=== PATIENT | female | born 1985 | race Hispanic/Latino ===

== ENCOUNTER 2017-04-11 03:32 | Observation (INO) | payer SELFPAY ==
[2017-04-11 03:58] VITALS: O2SAT 97
[2017-04-11] MEDS ORDERED: Sodium Chloride 0.9% 1,000 ML IV STA (04:02)
[2017-04-11 04:57] LABS: BASO % 0.2 % (0.0-2.0); EOS # 0.2 K/uL (0.0-0.7); EOS % 3.4 % (0.0-4.0); HEMATOCRIT 30.7 % (34.0-47.0); LYMPH # 1.5 K/uL (1.0-4.3); LYMPH % 22.2 % (20.0-40.0); MEAN CELL VOLUME 82.2 fl (81.0-99.0); MEAN CORPUSCULAR HEMOGLOBIN 26.7 pg (27.0-31.0); MEAN CORPUSCULAR HGB CONC 32.4 g/dL (33.0-37.0); MEAN PLATELET VOLUME 9.4 fl (7.2-11.7); MONO # 0.6 K/uL (0.0-0.8); MONO % 8.9 % (0.0-10.0); NEUT # 4.4 K/uL (1.8-7.0); NEUT % 65.3 % (50.0-75.0); NRBC % 0.1 % (0.0-0.0); RED CELL DISTRIBUTION WIDTH 16.4 % (11.5-14.5); WHITE BLOOD COUNT 6.8 K/uL (4.8-10.8)
[2017-04-11 04:58] LABS: URINE BILIRUBIN NEGATIVE (NEGATIVE); URINE BLOOD NEGATIVE (NEGATIVE); URINE COLOR STRAW (YELLOW); URINE GLUCOSE (UA) NEG (Normal); URINE KETONE NEGATIVE (NEGATIVE); URINE LEUKOCYTE ESTERASE NEG Leu/uL (Negative); URINE PROTEIN NEGATIVE (NEGATIVE); URINE UROBILINOGEN 0.2-1.0 mg/dL (0.2-1.0); WBC URINE < 1 /hpf (0-5)
--- NOTE | 2017-04-11 04:59 | ED PDOC ---
HPI: Abdomen Time Seen by Provider: 04/11/17 03:52 Chief Complaint (Nursing): Abdominal Pain Chief Complaint (Provider): abdominal pain, vomiting History Per: Patient History/Exam Limitations: no limitations Onset/Duration Of Symptoms: Days (1) Current Symptoms Are (Timing): Still Present Location Of Pain/Discomfort: Epigastric Quality Of Discomfort: Cramping Associated Symptoms: Nausea, Vomiting, Diarrhea Exacerbating Factors: Food Alleviating Factors: None Last Bowel Movement: Today Additional Complaint(s): 31yo biologic male currently undergoing gender reassignment on hormonal therapy presents c/o upper abdominal pain, nausea and blood tinged vomitus. Denies black or tarry stools, denies weakness, syncope or fever. Denies any prior history of such or being hospitalized for such in past. Denies history of EGD or workup for abdominal pain. Pt reports using motrin and OTC GI medications without much relief. On chart review available, patient has been admitted and worked up by GI at [facility]. Also additional MR#s with same last name, same birthday and same clinical history of gender reassignment #[id number], #[id number] demonstrate prior visits for similar. Past Medical History Reviewed: Historical Data, Nursing Documentation, Vital Signs Vital Signs: Last Vital Signs Temp 98.4 F 04/11/17 03:53 Pulse 88 04/11/17 03:53 Resp 18 04/11/17 03:53 BP 103/58 L 04/11/17 03:53 Pulse Ox 97 04/11/17 05:29 - Medical History PMH: No Chronic Diseases Other PMH: gender reassignment on hormonal therapy - Surgical History Surgical History: Appendectomy Other surgeries: breast augmentation - Family History Family History: States: Unknown Family Hx - Social History Current smoker - smoking cessation education provided: No Drugs: Cannabis - Immunization History Hx Tetanus Toxoid Vaccination: No Hx Influenza Vaccination: Yes Hx Pneumococcal Vaccination: Yes - Home Medications Home Medications: Ambulatory Orders Medication Instructions Recorded Estrogens,Esterified [Menest] 20 mg IM Q2W 02/12/17 Spironolactone [Aldactone] 100 mg PO BID 02/12/17 - Allergies Allergies/Adverse Reactions: Allergies Allergy/AdvReac Type Severity Reaction Status Date / Time acetaminophen [From Tylenol] Allergy Verified 02/12/17 01:30 aspirin Allergy Verified 02/12/17 01:30 Penicillins AdvReac Verified 02/12/17 01:30 Review of Systems ROS Statement: Except As Marked, All Systems Reviewed And Found Negative Constitutional: Negative for: Fever, Chills ENT: Negative for: Nose Pain, Nose Discharge Cardiovascular: Negative for: Chest Pain, Palpitations Respiratory: Negative for: Cough, Shortness of Breath Gastrointestinal: Positive for: Nausea, Vomiting, Abdominal Pain, Hematemesis. Negative for: Diarrhea, Constipation, Hematochezia, Rectal Pain Genitourinary Female: Negative for: Dysuria, Frequency, Incontinence Musculoskeletal: Negative for: Neck Pain, Shoulder Pain Physical Exam - Reviewed Nursing Documentation Reviewed: Yes Vital Signs Reviewed: Yes - Physical Exam Appears: Positive for: Well, Non-toxic, No Acute Distress Head Exam: Positive for: ATRAUMATIC, NORMAL INSPECTION, NORMOCEPHALIC Skin: Positive for: Normal Color, Warm, DRY Eye Exam: Positive for: EOMI, PERRL. Negative for: Periorbital swelling, Scleral icterus ENT: Positive for: Normal ENT Inspection. Negative for: Pharyngeal Erythema Neck: Positive for: Normal, Painless ROM Cardiovascular/Chest: Positive for: Regular Rate, Rhythm Respiratory: Positive for: CNT, Normal Breath Sounds Gastrointestinal/Abdominal: Positive for: Soft. Negative for: Tenderness, Guarding, Asicites Extremity: Negative for: Pedal Edema, Deformity Neurologic/Psych: Positive for: Alert, Oriented, Gait (observed normal). Negative for: Motor/Sensory Deficits - Laboratory Results Result Diagrams: 04/11/17 04:47 04/11/17 04:47 - ECG O2 Sat by Pulse Oximetry: 97 Medical Decision Making Medical Decision Making: workup initiated for recurrent upper abd pain. Prior chart reviewed including CT abd pelvis <2months ago, no acute findings. GI consult from late January 2017 reviewed. ED OBSERVATION Date of observation admission: 04/11/17 Time of observation admission: 05:28 - Observation admission statement Patient is being placed in observation because:: ongoing abdominal pain not responsive to conservative treatment - Goals of Observation Goals of observation are:: improved symptoms, obtain CT abd pelv and serial abd exams r/o acute abdomen Disposition - Clinical Impression Clinical Impression: Abdominal pain - Patient ED Disposition Is Patient to be Admitted: Transfer of Care - Disposition Disposition: Transfer of Care Disposition Time: 05:28 Condition: STABLE Patient Signed Over To: Juan F Walter Handoff Comments: pending CT result and dispo
[2017-04-11 05:12] LABS: ALB/GLOB RATIO 1.6 (1.0-2.1); ALKALINE PHOSPHATASE 45 U/L (38-126); ALT/SGPT 32 U/L (9-52); AST/SGOT 23 U/L (14-36); BILIRUBIN,TOTAL 0.2 mg/dl (0.2-1.3); BLOOD UREA NITROGEN 11 mg/dl (7-17); CALCIUM 9.5 mg/dL (8.4-10.2); CARBON DIOXIDE 24 mmol/L (22-30); CHLORIDE 103 mmol/L (98-107); GFR AFRICAN-AMERICAN > 60; GLUCOSE,RANDOM 118 mg/dL (65-105); LIPASE 65 U/L (23-300); POTASSIUM 3.8 MMOL/L (3.6-5.0); SODIUM 139 mmol/l (132-148); TOTAL PROTEIN 7.1 G/DL (6.3-8.2)
[2017-04-11] MEDS ORDERED: Iohexol 240 (50 ml) PO ONE (05:27)
--- NOTE | 2017-04-11 08:06 | ED PDOC ---
- Laboratory Results Result Diagrams: 04/11/17 04:47 04/11/17 04:47 Interpretation Of Abn Labs: no acute - ECG O2 Sat by Pulse Oximetry: 97 (RA) Pulse Ox Interpretation: Normal - CT Scan/US ct Other Rad Studies (CT/US): Read By Radiologist Other Rad Interpretation: no acute - Progress ED Course And Treament: 1010: Spoke with Dr. Hodges. No acute findings on CT. Pt. tolerated po. AAOx3. Pain free. Fu with pcp. Medical Decision Making Medical Decision Making: Patient signed out to provider at [address] pending CT. Scribe Attestation Documented by Thais Flannery acting as a scribe for Juan F Walter MD. Provider Attestation: All medical record entries made by the Scribe were at my direction and personally dictated by me. I have reviewed the chart and agree that the record accurately reflects my personal performance of the history, physical exam, medical decision making, and the department course for this patient. I have also personally directed, reviewed, and agree with the discharge instructions and disposition. Disposition - Clinical Impression Clinical Impression: Abdominal pain - POA Present On Arrival: None - Disposition Disposition: Routine/Home Disposition Time: 10:10 Condition: STABLE
[2017-04-11 10:19] VITALS: BP 110/60; PULSE 65; RESP 17; TEMP 97.9
--- NOTE | 2017-04-11 10:47 | CT ---
PROCEDURE: CT abdomen pelvis dated 04/11/2017. HISTORY: Upper abdominal pain COMPARISON: None. TECHNIQUE: Contiguous axial images of the abdomen and pelvis performed following oral and intravenous injection of approximately 95 cc Omnipaque 300 contrast material. . Coronal and Sagittal reformats generated. Radiation dose: Total exam DLP = 1123.49 mGy-cm. This CT exam was performed using one or more of the following dose reduction techniques: Automated exposure control, adjustment of the mA and/or kV according to patient size, and/or use of iterative reconstruction technique. FINDINGS: LOWER THORAX: Unremarkable. LIVER: Liver is upper limits of normal in size measuring nearly 18 cm. Normal in size. GALLBLADDER AND BILE DUCTS: What is felt to represent the gallbladder is apparently collapsed likely due to nonfasting state and cannot be adequately evaluated. Gallbladder wall is somewhat thickened likely due to collapse. No definitive intraluminal gallbladder calculi. Consider gallbladder ultrasound followup PANCREAS: Visualized portions of the pancreas appear grossly unremarkable. SPLEEN: Spleen exhibits normal size. Tiny calcification anterior inferior splenic parenchyma consistent with prior exposure to granulomatous disease process. ADRENALS: There are no adrenal gland lesions KIDNEYS AND URETERS: The there is opacification of the renal collecting systems due to delayed scanning following injection. Rounded hyperdense focus upper pole left kidney measuring 11.5 mm could represent a hyperdense or hemorrhagic cyst Followup ultrasound recommended to confirm and exclude solid mass. BLADDER: Grossly unremarkable. Appendix Apparent appendectomy with what appears represent suture along the posterior inferior margin of the cecal wall. BOWEL: Evaluation of the bowel is somewhat limited due to incomplete opacification. Stomach is incompletely distended which presumably accounts for thick-walled appearance. Possibility of gastritis not excluded. Visualized loops of small bowel exhibit relatively normal contour and caliber. No evidence of acute mechanical small bowel obstruction with oral contrast material extending to the colon to the level of the rectum. No definitive mural wall thickening. . What appears represent some suture material along the cecum likely due to prior appendectomy however clinical correlation with surgical history. PERITONEUM: Unremarkable. No fluid collection. No free air. LYMPH NODES: Unremarkable. No enlarged lymph nodes. VASCULATURE: Unremarkable. No aortic aneurysm. BONES: No fracture or destructive lesion. OTHER FINDINGS: None. IMPRESSION: Apparent up status post appendectomy. Gallbladder is incompletely visualized contracted due to of presume nonfasting state and therefore cannot be adequately evaluated. No definitive intraluminal calculi. . Consider followup gallbladder ultrasound. Probable small hyperdense or hemorrhagic cyst upper pole kidney left kidney. Recommend follow-up ultrasound to confirm and exclude solid mass. Borderline hepatomegaly. Tiny splenic calcification consistent with prior exposure to granulomatous disease process.
== END 2017-04-11 10:28 | disposition home or self-care (01) ==
LOC: H.ER 03:32 → H.EROBSV 05:28
PROVIDERS: ADMIT Emergency Medicine; ATTEND Emergency Medicine
DX: R10.13 Epigastric pain (principal); R11.2 Nausea with vomiting, unspecified; Z88.6 Allergy status to analgesic agent; Z88.0 Allergy status to penicillin

== ENCOUNTER 2017-05-02 01:04 | Emergency (ER) | payer SELFPAY ==
[2017-05-02 01:21] VITALS: BP 119/71; PULSE 79; RESP 18; TEMP 98.9; O2SAT 99
[2017-05-02] MEDS ORDERED: Sodium Chloride 0.9% 1,000 ML IV STA (01:50)
--- NOTE | 2017-05-02 01:54 | ED PDOC ---
HPI:Nausea, Vomiting, Diarrhea Time Seen by Provider: 05/02/17 01:14 Chief Complaint (Nursing): Abdominal Pain Chief Complaint (Provider): vomiting, diarrhea, abdominal pain History Per: Patient History/Exam Limitations: no limitations Onset/Duration Of Symptoms: Days (4) Current Symptoms Are (Timing): Still Present Associated Symptoms: Nausea, Vomiting, Diarrhea Additional History Per: Patient Additional Complaint(s): 31 y/o biologic male currently undergoing gender reassignment on hormonal therapy presents with abdominal pain with vomiting and diarrhea x 4 days. Patient states yesterday she began to notice bright red blood in the diarrhea. Denies fever, chest pain, shortness of breath, palpitations, sick contacts. Patient states she just came from [place] 1 week ago. Past Medical History Reviewed: Historical Data, Nursing Documentation, Vital Signs Vital Signs: Last Vital Signs Temp 98.9 F 05/02/17 01:19 Pulse 79 05/02/17 01:19 Resp 18 05/02/17 01:19 BP 119/71 05/02/17 01:19 Pulse Ox 99 05/02/17 01:19 - Medical History PMH: No Chronic Diseases - Surgical History Surgical History: Appendectomy - Family History Family History: States: Unknown Family Hx - Immunization History Hx Tetanus Toxoid Vaccination: No Hx Influenza Vaccination: Yes Hx Pneumococcal Vaccination: Yes - Home Medications Home Medications: Ambulatory Orders Medication Instructions Recorded Estrogens,Esterified [Menest] 20 mg IM Q2W 02/12/17 Spironolactone [Aldactone] 100 mg PO BID 02/12/17 Famotidine [Pepcid] 20 mg PO DAILY PRN #6 tab 04/11/17 Dicyclomine [Bentyl] 20 mg PO TID PRN #10 tab 05/02/17 Esomeprazole Magnesium [Nexium] 20 mg PO DAILY #10 capsule. 05/02/17 Ondansetron ODT [Zofran ODT] 4 mg PO Q8 PRN #10 odt 05/02/17 - Allergies Allergies/Adverse Reactions: Allergies Allergy/AdvReac Type Severity Reaction Status Date / Time acetaminophen [From Tylenol] Allergy Verified 02/12/17 01:30 aspirin Allergy Verified 02/12/17 01:30 Penicillins AdvReac Verified 02/12/17 01:30 Review of Systems ROS Statement: Except As Marked, All Systems Reviewed And Found Negative Gastrointestinal: Positive for: Nausea, Vomiting, Abdominal Pain, Diarrhea Physical Exam - Reviewed Nursing Documentation Reviewed: Yes Vital Signs Reviewed: Yes - Physical Exam Appears: Positive for: Well, Non-toxic, No Acute Distress Head Exam: Positive for: ATRAUMATIC, NORMAL INSPECTION, NORMOCEPHALIC Skin: Positive for: Normal Color Eye Exam: Positive for: Normal appearance ENT: Positive for: Normal ENT Inspection Cardiovascular/Chest: Positive for: Regular Rate, Rhythm Respiratory: Positive for: Normal Breath Sounds Gastrointestinal/Abdominal: Positive for: Bowel Sounds, Soft, Tenderness (LUQ) Rectal: Positive for: Hemorrhoids (external, nonthrombosed, nontender), Other ( exam chaperoned by Debbie Prince Rn) Extremity: Positive for: Normal ROM Neurologic/Psych: Positive for: Alert, Oriented - Laboratory Results Result Diagrams: 05/02/17 02:04 05/02/17 02:04 - ECG O2 Sat by Pulse Oximetry: 99 - Progress ED Course And Treament: labs, urine, IV fluids, IV zofran, IV pepcid, PO bentyl Chart reviewed, patient with multiple visits for same (has different MR numbers with different names) Last CT 04/11/17 showed no acute/concerning findings. On re-eval, patient sleeping; no distress. 3:00 Patient educated on findings, discharged with rx Zofran, Nexium, Bentyl. Advised fluids, bland diet, follow up GI. Return to ED for worsening/concerning symptoms. Disposition - Clinical Impression Clinical Impression: Gastroenteritis - Patient ED Disposition Is Patient to be Admitted: No Counseled Patient/Family Regarding: Studies Performed, Diagnosis, Need For Followup, Rx Given - Disposition Referrals: Segundo Hwang MD, PhD [Staff Provider] - Disposition: Routine/Home Disposition Time: 03:01 Condition: IMPROVED Prescriptions: Dicyclomine [Bentyl] 20 mg PO TID PRN #10 tab PRN Reason: Pain, Mild (1-3) Esomeprazole Magnesium [Nexium] 20 mg PO DAILY #10 capsule. Ondansetron ODT [Zofran ODT] 4 mg PO Q8 PRN #10 odt PRN Reason: Nausea/Vomiting Instructions: Gastroenteritis (ED), Rectal Bleeding (ED)
[2017-05-02 02:10] LABS: BASO # 0.1 K/uL (0.0-0.2); EOS # 0.1 K/uL (0.0-0.7); EOS % 2.6 % (0.0-4.0); HEMOGLOBIN 9.5 g/dL (12.0-16.0); LYMPH # 1.3 K/uL (1.0-4.3); LYMPH % 23.1 % (20.0-40.0); MEAN CELL VOLUME 80.8 fl (81.0-99.0); MEAN CORPUSCULAR HEMOGLOBIN 26.4 pg (27.0-31.0); MEAN CORPUSCULAR HGB CONC 32.7 g/dL (33.0-37.0); MONO # 0.7 K/uL (0.0-0.8); MONO % 12.2 % (0.0-10.0); NEUT # 3.5 K/uL (1.8-7.0); NEUT % 61.1 % (50.0-75.0); RBC 3.59 Mil/uL (3.80-5.20); WHITE BLOOD COUNT 5.7 K/uL (4.8-10.8)
[2017-05-02 02:20] LABS: ALB/GLOB RATIO 1.5 (1.0-2.1); ALBUMIN 4.2 g/dL (3.5-5.0); ALT/SGPT 25 U/L (9-52); AST/SGOT 22 U/L (14-36); BLOOD UREA NITROGEN 14 mg/dl (7-17); CALCIUM 9.4 mg/dL (8.4-10.2); GFR AFRICAN-AMERICAN > 60; GFR NON-AFRICAN AMERICAN > 60; LIPASE 48 U/L (23-300)
== END 2017-05-02 03:16 | disposition home or self-care (01) ==
LOC: H.ER 01:04
DX: K52.9 Noninfective gastroenteritis and colitis, unspecified (principal); Z88.0 Allergy status to penicillin
CPT/HCPCS: 80053; 83690; 85025; 96361; 96374; 96375; 99283; G0328; J2405; J7040

== ENCOUNTER 2017-05-19 01:50 | Inpatient (IN) | payer SELFPAY ==
--- NOTE | 2017-05-19 02:53 | ED PDOC ---
HPI: Psych/Substance Abuse Time Seen by Provider: 05/19/17 01:54 Chief Complaint (Nursing): Psychiatric Evaluation Chief Complaint (Provider): Psychiatric evaluation History Per: Patient History/Exam Limitations: no limitations Onset/Duration Of Symptoms: Days (x3 days) Additional Complaint(s): Silvia Grossman is a 31 year old female well known to the ED who presents here today for depression and suicidal thoughts for the past 3 days as a result of the of her grandmother. Denies any plans to kill herself, usage of drugs, or alcohol. PMD: None Past Medical History Reviewed: Historical Data, Nursing Documentation, Vital Signs Vital Signs: Last Vital Signs Temp 99.0 F 05/19/17 02:05 Pulse 91 H 05/19/17 02:05 Resp 18 05/19/17 02:05 BP 104/64 05/19/17 02:05 Pulse Ox 100 05/19/17 02:05 - Medical History PMH: No Chronic Diseases - Surgical History Surgical History: Appendectomy - Family History Family History: States: Unknown Family Hx - Social History Alcohol: None Drugs: Denies - Immunization History Hx Tetanus Toxoid Vaccination: No Hx Influenza Vaccination: Yes Hx Pneumococcal Vaccination: Yes - Home Medications Home Medications: Ambulatory Orders Medication Instructions Recorded Estrogens,Esterified [Menest] 20 mg IM Q2W 02/12/17 Spironolactone [Aldactone] 100 mg PO BID 02/12/17 Famotidine [Pepcid] 20 mg PO DAILY PRN #6 tab 04/11/17 Dicyclomine [Bentyl] 20 mg PO TID PRN #10 tab 05/02/17 Esomeprazole Magnesium [Nexium] 20 mg PO DAILY #10 maye. 05/02/17 Ondansetron ODT [Zofran ODT] 4 mg PO Q8 PRN #10 odt 05/02/17 - Allergies Allergies/Adverse Reactions: Allergies Allergy/AdvReac Type Severity Reaction Status Date / Time acetaminophen [From Tylenol] Allergy RASH Verified 05/19/17 02:05 aspirin Allergy RASH Verified 05/19/17 02:05 Penicillins AdvReac SWELLING Verified 05/19/17 02:05 Review of Systems ROS Statement: Except As Marked, All Systems Reviewed And Found Negative Psych: Positive for: Depression, Suicidal ideation. Negative for: Other (No Homicidal ideation) Physical Exam - Reviewed Nursing Documentation Reviewed: Yes Vital Signs Reviewed: Yes - Physical Exam Appears: Positive for: Well, Non-toxic, No Acute Distress Head Exam: Positive for: ATRAUMATIC, NORMAL INSPECTION, NORMOCEPHALIC Skin: Positive for: Normal Color Eye Exam: Positive for: Normal appearance, EOMI, PERRL ENT: Positive for: Normal ENT Inspection Neck: Positive for: Normal, Painless ROM, Supple Cardiovascular/Chest: Positive for: Regular Rate, Rhythm. Negative for: Murmur , Tachycardia Respiratory: Positive for: Normal Breath Sounds. Negative for: Wheezing, Respiratory Distress Gastrointestinal/Abdominal: Positive for: Normal Exam, Soft. Negative for: Tenderness Back: Positive for: Normal Inspection Rectal: Positive for: Deferred Extremity: Positive for: Normal ROM Lymphatic: Positive for: Deferred Neurologic/Psych: Positive for: Alert, Oriented - Laboratory Results Result Diagrams: 05/19/17 03:15 05/19/17 03:15 - ECG O2 Sat by Pulse Oximetry: 100 (RA) Pulse Ox Interpretation: Normal Medical Decision Making Medical Decision Making: Time: 0154: Initial Impression: 31 year old female with depression in setting of loss of family member. Initial Plan: * Crisis evaluation 5AM: Pt. is medically cleared. Seen and examined by Crisis, to be admitted for depression under Dr. Ramesh. Scribe Attestation: Documented by Jammie Godinez acting as a scribe for Juancho Pink MD. Provider Scribe Attestation: All medical record entries made by the Scribe were at my direction and personally dictated by me. I have reviewed the chart and agree that the record accurately reflects my personal performance of the history, physical exam, medical decision making, and the department course for this patient. I have also personally directed, reviewed, and agree with the discharge instructions and disposition. Disposition - Clinical Impression Clinical Impression: Depression - Disposition Disposition Time: 05:00 Condition: STABLE Forms: [employer] ([employer])
[2017-05-19 03:26] LABS: BASO # 0.1 K/uL (0.0-0.2); BASO % 1.2 % (0.0-2.0); EOS # 0.2 K/uL (0.0-0.7); EOS % 3.5 % (0.0-4.0); HEMATOCRIT 27.5 % (34.0-47.0); LYMPH # 1.2 K/uL (1.0-4.3); MEAN CORPUSCULAR HEMOGLOBIN 27.3 pg (27.0-31.0); MEAN CORPUSCULAR HGB CONC 33.8 g/dL (33.0-37.0); MEAN PLATELET VOLUME 8.2 fl (7.2-11.7); MONO # 0.7 K/uL (0.0-0.8); NEUT # 3.5 K/uL (1.8-7.0); NEUT % 62.3 % (50.0-75.0); NRBC % 0.1 % (0.0-0.0); RED CELL DISTRIBUTION WIDTH 17.5 % (11.5-14.5); WHITE BLOOD COUNT 5.6 K/uL (4.8-10.8)
[2017-05-19 03:32] LABS: RBC URINE < 1 /hpf (0-3); URINE BACTERIA RARE (<OCC); URINE BILIRUBIN NEGATIVE (NEGATIVE); URINE BLOOD NEGATIVE (NEGATIVE); URINE COLOR STRAW (YELLOW); URINE GLUCOSE (UA) NEG (Normal); URINE KETONE NEGATIVE (NEGATIVE); URINE LEUKOCYTE ESTERASE NEG Leu/uL (Negative); URINE PROTEIN NEGATIVE (NEGATIVE); URINE UROBILINOGEN 0.2-1.0 mg/dL (0.2-1.0); WBC URINE < 1 /hpf (0-5)
[2017-05-19 03:37] LABS: ALCOHOL SERUM < 10 mg/dl (0-10); BLOOD UREA NITROGEN 6 mg/dl (7-17); CALCIUM 8.9 mg/dL (8.4-10.2); CARBON DIOXIDE 25 mmol/L (22-30); CHLORIDE 107 mmol/L (98-107); GFR AFRICAN-AMERICAN > 60; GLUCOSE,RANDOM 96 mg/dL (65-105); POTASSIUM 3.5 MMOL/L (3.6-5.0); SODIUM 140 mmol/l (132-148)
[2017-05-19 05:40] VITALS: O2SAT 99
[2017-05-19] MEDS ORDERED: Alum-Mag Hydrox-Simethicone Susp (30 mL) PO PRN (06:49)
[2017-05-19] MEDS ORDERED: DiphenhydrAMINE 50 mg/ml Inj IM PRN (06:49)
[2017-05-19] MEDS ORDERED: Magnesium Hydroxide Susp 30 ml UD PO PRN (06:49)
--- NOTE | 2017-05-19 16:03 | PCM.PSYCH ---
Initial Psychiatric Evaluation - Initial Psychiatric Evaluation Legal Status: Guardian Chief Complaint (in patient's own words): i dont know Patient's Reaction to Hospitalization: pt is depressed History of Present Illness and Precipitating Events: This is a transgender pt identifying herself as a 31 yr old female with h/o depression admitted because of severe depression and suicidal ideation since of the grandmother and pt continues to have suicidal thoughts and does not feel safe going home. Current Medications: Active Medications Generic Name Dose Route Start Last Admin Trade Name Freq PRN Reason Stop Dose Admin Al Hydrox/Mg Hydrox/Simethicone 30 ml 05/19/17 06:49 Maalox Plus 30 Ml PO Q4 PRN Dyspepsia Diphenhydramine HCl 50 mg 05/19/17 06:49 Benadryl IM Q6 PRN Extrapyramidal S/S Unable PO Diphenhydramine HCl 50 mg 05/19/17 06:49 Benadryl PO Q6 PRN Extrapyramidal Symptoms Diphenhydramine HCl 50 mg 05/19/17 06:54 Benadryl PO HS PRN Sleep Haloperidol 5 mg 05/19/17 06:49 Haldol PO Q4 PRN Agitation Haloperidol Lactate 5 mg 05/19/17 06:49 Haldol IM Q4 PRN Agitation, Unable to Take PO Lorazepam 2 mg 05/19/17 06:49 Ativan IM Q4 PRN Anxiety/Agitation,Unable PO Lorazepam 2 mg 05/19/17 06:49 Ativan PO Q4 PRN Anxiety/Agitation Magnesium Hydroxide 30 ml 05/19/17 06:49 Milk Of Magnesia PO HS PRN Constipation Past Psychiatric History - Past Psychiatric History Previous Treatment History: None History of Abuse: denies History of ETOH/Drug Use: denies History of Family Illness: not known Pertinent Medical Hx (Current Medical&Sleep Prob, Allergies): Allergies Allergy/AdvReac Type Severity Reaction Status Date / Time acetaminophen [From Tylenol] Allergy RASH Verified 05/19/17 02:05 aspirin Allergy RASH Verified 05/19/17 02:05 Penicillins AdvReac SWELLING Verified 05/19/17 02:05 Estrogens,Esterified [Menest] 2 mg PO TID 02/12/17 Spironolactone [Aldactone] 100 mg PO BID 02/12/17 not significant pt is receiving estrogen . Review of Systems - Review of Systems All systems: reviewed and no additional remarkable complaints except Mental Status Examination - Personal Presentation Personal Presentation: Looks stated age - Affect Affect: Constricted - Motor Activity Motor Activity: Calm - Reliability in Providing Information Reliability in Providing Information: Fair - Speech Speech: Relevant - Mood Mood: Depressed, Anxious - Formal Thought Process Formal Thought Process: No Impairment - Obsessions/Compulsions Compulsions: No - Cognitive Functions Orientation: Person, Place, Situation, Time Attention/Concentration: Easily distracted Abstract Thinking: As evidence by abstract perception of proverbs Judgement: Imparied, as evidence by: Poor judgement Memory: Recent intact, as evidence by: Ability to recall events of the day, Remote intact, as evidenced by: Ability to recall historical events - Strength & Assets Inventory Strength & Assets Inventory: Cooperative DSM 5 DX - DSM 5 DSM 5 Diagnosis: major depression,severe grief reaction - Recommended/Plan of Treatment Treatment Recommendations and Plan of Treatment: will get more collateral info will start pt on zoloft 25 mg daily for depression and engage pt in therapy grief counselling
--- NOTE | 2017-05-19 19:21 | CP.PCM.CON ---
History of Present Illness - History of Present Illness History of Present Illness: 31 yo transgender admitted in psyche unit because of worsening depression and suicidal ideation. Review of Systems - Review of Systems All systems: reviewed and no additional remarkable complaints except (aside from those mentioned above, 12 point system review were negative by me) Past Patient History - Tetanus Immunizations Tetanus Immunization: Unknown - Past Medical History & Family History Past Medical History?: No Past Family History: Reviewed and not pertinent - Past Social History Smoking Status: Never Smoked Alcohol: None Drugs: Denies - CARDIAC Hx Cardiac Disorders: No - PULMONARY Hx Respiratory Disorders: No - NEUROLOGICAL Hx Neurological Disorder: No - HEENT Hx HEENT Problems: No - RENAL Hx Chronic Kidney Disease: No - ENDOCRINE/METABOLIC Hx Endocrine Disorders: No - HEMATOLOGICAL/ONCOLOGICAL Hx Blood Disorders: No - INTEGUMENTARY Hx Dermatological Problems: No - MUSCULOSKELETAL/RHEUMATOLOGICAL Hx Musculoskeletal Disorders: No - GENITOURINARY/GYNECOLOGICAL Hx Genitourinary Disorders: No - PSYCHIATRIC Hx Anxiety: Yes (pt has no plan) 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) - SURGICAL HISTORY Hx Appendectomy: Yes (10 years ago) - ANESTHESIA Hx Anesthesia: Yes Hx Anesthesia Reactions: No Hx Malignant Hyperthermia: No Meds Allergies/Adverse Reactions: Allergies Allergy/AdvReac Type Severity Reaction Status Date / Time acetaminophen [From Tylenol] Allergy RASH Verified 05/19/17 02:05 aspirin Allergy RASH Verified 05/19/17 02:05 Penicillins AdvReac SWELLING Verified 05/19/17 02:05 - Medications Medications: Current Medications Al Hydrox/Mg Hydrox/Simethicone (Maalox Plus 30 Ml) 30 ml PO Q4 PRN PRN Reason: Dyspepsia Diphenhydramine HCl (Benadryl) 50 mg IM Q6 PRN PRN Reason: Extrapyramidal S/S Unable PO Diphenhydramine HCl (Benadryl) 50 mg PO Q6 PRN PRN Reason: Extrapyramidal Symptoms Diphenhydramine HCl (Benadryl) 50 mg PO HS PRN PRN Reason: Sleep Haloperidol (Haldol) 5 mg PO Q4 PRN PRN Reason: Agitation Haloperidol Lactate (Haldol) 5 mg IM Q4 PRN PRN Reason: Agitation, Unable to Take PO Lorazepam (Ativan) 2 mg IM Q4 PRN PRN Reason: Anxiety/Agitation,Unable PO Lorazepam (Ativan) 2 mg PO Q4 PRN PRN Reason: Anxiety/Agitation Magnesium Hydroxide (Milk Of Magnesia) 30 ml PO HS PRN PRN Reason: Constipation Sertraline HCl (Zoloft) 25 mg PO DAILY MIKHAIL Physical Exam - Constitutional Appears: No Acute Distress - Head Exam Head Exam: ATRAUMATIC - Eye Exam Eye Exam: absent: Scleral icterus - ENT Exam ENT Exam: Mucous Membranes Moist - Neck Exam Neck exam: Negative for: Meningismus - Respiratory Exam Respiratory Exam: absent: Rhonchi, Wheezes, Respiratory Distress - Cardiovascular Exam Cardiovascular Exam: REGULAR RHYTHM, +S1, +S2 - GI/Abdominal Exam GI & Abdominal Exam: Soft. absent: Tenderness - Rectal Exam Rectal Exam: Deferred - Extremities Exam Extremities exam: Negative for: pedal edema - Back Exam Back exam: NORMAL INSPECTION - Neurological Exam Neurological exam: Alert, Oriented x3 - Psychiatric Exam Psychiatric exam: Normal Affect - Skin Skin Exam: Dry, Intact Results - Vital Signs Recent Vital Signs: Last Vital Signs Temp 97.7 F 05/19/17 06:00 Pulse 59 L 05/19/17 06:00 Resp 18 05/19/17 06:00 BP 109/64 05/19/17 06:00 Pulse Ox 99 05/19/17 05:39 - Labs Result Diagrams: 05/19/17 03:15 05/19/17 03:15 Assessment & Plan (1) Depression Status: Acute Comment: psyche is managing (2) Anemia Status: Acute Comment: chronic and stable
[2017-05-19] MEDS ORDERED: Potassium Chloride 10 mEq ER Tab PO ONE (19:41)
--- NOTE | 2017-05-20 10:44 | PCM.PYCHPN ---
Psychiatric Progress Note - Psychiatric Progress Note Patient seen today, length of contact: Patient evaluated, case discussed with team, chart reviewed, 35 min Patient Chief Complaint: I'm depressed Problems Identified/Issues Discussed: Patient continues to report that he feels severely depressed. He is agreeable to taking Zoloft 50 mg PO Daily for depression. He reports that he feels tired with lack of motivation and did not want to leave his room for the interview. He denies current ideation to harm himself or others. Medication Change: Yes (Zoloft 50 mg PO Daily) Medical Record Reviewed: Yes Consults ordered or reviewed: Medicine consult appreciated Mental Status Examination - Cognitive Function Orientation: Person, Place, Situation, Time Memory: Intact Attention: WNL Concentration: WNL Association: WN Fund of Knowledge: WN - Mood Mood: Depressed, Anxious - Affect Affect: Constricted - Speech Speech: Appropriate - Formal Thought Process Formal Thought Process: No Impairment Psychotic Thoughts and Behaviors: No AH/VH/paranoia/delusions - Suicidal Ideation Suicidal Ideation: No - Homicidal Ideation Homicidal Ideation: No Goal/Treatment Plan - Goal/Treatment Plan Need for Continued Stay: Remain at risks for inpatient hospitalization, Severe depression anxiety Progress Toward Problem(s) and Goals/Treatment Plan: Major Depressive Disorder; patient reports that he continues to feel depressed, w/ low energy, depressed mood, poor concentration and low motivation. He denies current ideation to harm himself and can contract for safety. -Medicine consult appreciated -Zoloft 50 mg PO Daily -Individual and group therapy -Disposition planning Estimated Date of D/C: 05/24/17
[2017-05-21 06:08] VITALS: BP 105/79; PULSE 83; RESP 18; TEMP 97.5
--- NOTE | 2017-05-21 09:34 | PCM.PYCHDC ---
Mental Status Examination - Mental Status Examination Orientation: Person, Place, Situation, Time Memory: Intact Mood: Neutral Affect: Broad Speech: Appropriate Attention: WNL Concentration: WNL Association: WNL Fund of Knowledge: WNL Formal Thought Process: No Impairment Description of patient's judgement and insight: Fair I/J Psychotic Thoughts and Behaviors: No AH/VH/paranoia/delusions Suicidal Ideation: No Current Homicidal Ideation?: No Discharge Summary - Discharge Note Reason for Hospitalization: 31 yo transgender F admitted in psyche unit because of worsening depression and suicidal ideation. Consultations:: List each consultation separately and include: 1. Reason for request. 2. Findings. 3. Follow-up Consultations: Medicine consult appreciated Summary of Hospital Course include:: 1. Description of specific treatment plan utilized for patients during their course of treatmen. 2. Summarize the time- course for resolution of acute symptoms and/or regressed behaviors. 3. Describe issues identified and worked on during hospitalization. 4. Describe medication utilized. 5. Describe medical problems identified and treated. 6. Reassessment of suicide risk Summary of Hospital Course: Patient was admitted to the hospital. Individual and group therapy provided. Patient was started on Zoloft 50 mg PO Daily. He no longer reports feeling depressed. He denies suicidal ideation. He submitted a 48 hour letter requesting discharge and as he is not an acute danger to self or others, he will be discharged at this time. - Final Diagnosis (DSM 5) Condition upon Discharge: STABLE DSM 5: Major Depressive Disorder Disposition: HOME/ ROUTINE Follow-up Treatment Plan: Major Depressive Disorder; He submitted a 48 hour letter requesting discharge and as he is not an acute danger to self or others, he will be discharged at this time. -Medicine consult appreciated -Zoloft 50 mg PO Daily -Discharge w/ outpatient follow-up Prescriptions/Medication Reconciliation: Sertraline [Zoloft] 50 mg PO DAILY #30 tab - Smoking Cessation Smoking Cessation Medication prescribed: No Reason for not providing: Not indicated - Antipsychotic Medications Pt discharged on 2 or more routine antipsychotic medications: No
== END 2017-05-21 12:36 | disposition home or self-care (01) | DRG 881 ==
LOC: H.ER 01:50 → H.ERHOLD 05:12 → H.STEP 07:01
PROVIDERS: ADMIT Psychiatry & Neurology Psychiatry; ATTEND Psychiatry & Neurology Psychiatry
PROC: GZ51ZZZ Individual Psychotherapy, Behavioral (ICD-10-PCS; principal; 2017-05-19)
DX: F32.9 Major depressive disorder, single episode, unspecified (principal); R45.851 Suicidal ideations; F64.9 Gender identity disorder, unspecified; F43.20 Adjustment disorder, unspecified; Z79.899 Other long term (current) drug therapy; Z90.49 Acquired absence of other specified parts of digestive tract; F41.9 Anxiety disorder, unspecified; R53.83 Other fatigue

== ENCOUNTER 2017-07-16 23:54 | Emergency (ER) | payer SELFPAY ==
[2017-07-17 00:32] VITALS: BP 115/49; PULSE 70; RESP 16; TEMP 97.8; O2SAT 100
[2017-07-17] MEDS ORDERED: Sodium Chloride 0.9% 1,000 ML IV STA (00:39)
--- NOTE | 2017-07-17 00:57 | ED PDOC ---
HPI:Nausea, Vomiting, Diarrhea Time Seen by Provider: 07/17/17 00:10 Chief Complaint (Nursing): Abdominal Pain Chief Complaint (Provider): Nausea, Vomiting, Diarrhea History Per: Patient History/Exam Limitations: no limitations Current Symptoms Are (Timing): Still Present Quality Of Discomfort: "Pain" Associated Symptoms: Nausea, Vomiting, Diarrhea Additional Complaint(s): 32 year old female presents to ED with complaints of nausea, vomiting, and diarrhea, and is well known to ED. Patient has made this complaint several times before under different MRNs and different spellings of her name. States that she has only been in the [place] x2 weeks despite multiple recent ED visits. Claims to have only been to the ED twice. (-) bloody/bilious emesis, (+) watery diarrhea and RUQ pain. PCP:Dr. Cordero Past Medical History Reviewed: Historical Data ( ), Nursing Documentation, Vital Signs Vital Signs: Last Vital Signs Temp 97.8 F 07/17/17 00:30 Pulse 70 07/17/17 00:30 Resp 16 07/17/17 00:30 BP 115/49 L 07/17/17 00:30 Pulse Ox 100 07/17/17 00:30 - Medical History PMH: Anxiety (pt has no plan) Denies: Diabetes, Hepatitis, HIV, HTN, Chronic Kidney Disease, Seizures, Sexually Transmitted Disease - Surgical History Surgical History: Appendectomy (10 years ago) - Family History Family History: States: Unknown Family Hx - Social History Drugs: Cannabis - Immunization History Hx Tetanus Toxoid Vaccination: No Hx Influenza Vaccination: Yes Hx Pneumococcal Vaccination: Yes - Home Medications Home Medications: Ambulatory Orders Medication Instructions Recorded Estrogens,Esterified [Menest] 2 mg PO TID 02/12/17 Spironolactone [Aldactone] 100 mg PO BID 02/12/17 Sertraline [Zoloft] 50 mg PO DAILY #30 tab 05/21/17 Dicyclomine [Bentyl] 20 mg PO QID #30 tab 07/17/17 Ondansetron [Zofran] 4 mg PO Q8H #12 tab 07/17/17 - Allergies Allergies/Adverse Reactions: Allergies Allergy/AdvReac Type Severity Reaction Status Date / Time acetaminophen [From Tylenol] Allergy RASH Verified 05/19/17 02:05 aspirin Allergy RASH Verified 05/19/17 02:05 Penicillins AdvReac SWELLING Verified 05/19/17 02:05 Review of Systems ROS Statement: Except As Marked, All Systems Reviewed And Found Negative Gastrointestinal: Positive for: Nausea, Vomiting, Abdominal Pain, Diarrhea Physical Exam - Reviewed Nursing Documentation Reviewed: Yes Vital Signs Reviewed: Yes - Physical Exam Appears: Positive for: Non-toxic, No Acute Distress Head Exam: Positive for: ATRAUMATIC, NORMOCEPHALIC Skin: Positive for: Normal Color, Warm, DRY Eye Exam: Positive for: EOMI, Normal appearance, PERRL ENT: Positive for: Normal ENT Inspection Neck: Positive for: Normal, Painless ROM Cardiovascular/Chest: Positive for: Regular Rate, Rhythm Respiratory: Positive for: Normal Breath Sounds. Negative for: Respiratory Distress Gastrointestinal/Abdominal: Positive for: Normal Exam, Soft. Negative for: Tenderness Back: Positive for: Normal Inspection Extremity: Positive for: Normal ROM. Negative for: Deformity Neurologic/Psych: Positive for: Alert, Oriented. Negative for: Motor/Sensory Deficits - Laboratory Results Result Diagrams: 07/17/17 01:30 07/17/17 01:30 - ECG O2 Sat by Pulse Oximetry: 100 (RA) Pulse Ox Interpretation: Normal Medical Decision Making Medical Decision Makin Initial impression: chronic abdominal pain, narcotic-seeking behavior Initial plan: * Labs * Lipase * Toradol 15mg IVP * Zofran Inj 4mg IVP * UA * US GALLBLADDER AND HEPATIC * Re-eval When provider entered room for physical exam, patient was attempting to charge cellular phone. 330AM: U/S shows nonspecific GB thickening, however no white count, no abnl LFTs to suggest acute leonor. Likely patient having acute gastroenteritis. Patient asking for stronger pain medications, explained that we do not provide narcotics for this type of condition. Pt. tolerating PO. Will give referral to GI. Return precautions given. Scribe Attestation: Documented by Antonia Ruiz acting as a scribe for Juancho Pink MD. Scribe Attestation: All medical record entries made by the Scribe were at my direction and personally dictated by me. I have reviewed the chart and agree that the record accurately reflects my personal performance of the history, physical exam, medical decision making, and the department course for this patient. I have also personally directed, reviewed, and agree with the discharge instructions and disposition. Disposition - Clinical Impression Clinical Impression: Gastroenteritis - Patient ED Disposition Is Patient to be Admitted: No - Disposition Disposition: Routine/Home Disposition Time: 03:31 Condition: STABLE Prescriptions: Dicyclomine [Bentyl] 20 mg PO QID #30 tab Ondansetron [Zofran] 4 mg PO Q8H #12 tab Instructions: Gastroenteritis (ED) Forms: [employer] ([place])
[2017-07-17 01:44] LABS: BASO % 0.2 % (0.0-2.0); EOS # 0.1 K/uL (0.0-0.7); EOS % 2.4 % (0.0-4.0); LYMPH # 1.5 K/uL (1.0-4.3); MEAN CELL VOLUME 82.4 fl (81.0-99.0); MEAN CORPUSCULAR HEMOGLOBIN 27.1 pg (27.0-31.0); MEAN CORPUSCULAR HGB CONC 32.9 g/dL (33.0-37.0); MEAN PLATELET VOLUME 8.5 fl (7.2-11.7); MONO # 0.6 K/uL (0.0-0.8); MONO % 10.7 % (0.0-10.0); NEUT # 3.7 K/uL (1.8-7.0); NEUT % 61.7 % (50.0-75.0); NRBC % 0.1 % (0.0-0.0)
[2017-07-17 01:54] LABS: RBC URINE 4 /hpf (0-3); URINE BACTERIA RARE (<OCC); URINE BILIRUBIN NEGATIVE (NEGATIVE); URINE BLOOD NEGATIVE (NEGATIVE); URINE COLOR YELLOW (YELLOW); URINE GLUCOSE (UA) NEG (Normal); URINE KETONE TRACE mg/dL (NEGATIVE); URINE LEUKOCYTE ESTERASE NEG Leu/uL (Negative); URINE PROTEIN NEGATIVE (NEGATIVE); URINE UROBILINOGEN 0.2-1.0 mg/dL (0.2-1.0); WBC URINE 2 /hpf (0-5)
[2017-07-17 02:16] LABS: BLOOD UREA NITROGEN 14 mg/dl (7-17); GLUCOSE,RANDOM 71 mg/dL (65-105)
[2017-07-17 02:17] LABS: CARBON DIOXIDE 24 mmol/L (22-30); CHLORIDE 108 mmol/L (98-107); GFR AFRICAN-AMERICAN > 60; POTASSIUM 4.1 MMOL/L (3.6-5.0); SODIUM 140 mmol/l (132-148)
[2017-07-17 02:18] LABS: ALB/GLOB RATIO 1.3 (1.0-2.1); ALKALINE PHOSPHATASE 49 U/L (38-126); ALT/SGPT 26 U/L (9-52); AST/SGOT 35 U/L (14-36); BILIRUBIN,TOTAL 0.5 mg/dl (0.2-1.3); CALCIUM 8.9 mg/dL (8.4-10.2); LIPASE 112 U/L (23-300); TOTAL PROTEIN 7.2 G/DL (6.3-8.2)
--- NOTE | 2017-07-17 10:41 | US ---
HISTORY: RUQ pain COMPARISON: None. TECHNIQUE: Sonographic evaluation of the right upper quadrant of the abdomen. FINDINGS: LIVER: Measures 15.2 cm in length. Normal echogenicity of the liver parenchyma. No mass. No intrahepatic bile duct dilatation. GALLBLADDER: Gallbladder contracted. Gallbladder wall thickened to approximately 5 mm. This may be artifact secondary to contracted status. No evidence of cholelithiasis. No pericholecystic fluid. Questionable sonographic Chao sign. COMMON BILE DUCT: Measures 4 mm. No stones. No dilatation. PANCREAS: Unremarkable as visualized. No mass. No ductal dilatation. RIGHT KIDNEY: Measures 10.1 cm in length. Normal echogenicity. No calculus, mass, or hydronephrosis. AORTA: No aneurysmal dilatation. IVC: Unremarkable. OTHER FINDINGS: None . IMPRESSION: Contracted gallbladder without cholelithiasis. Mural thickening likely artifact due to contracted gallbladder. Questionable sonographic Chao sign. Findings are equivocal for acute cholecystitis. The remainder of the examination is unremarkable. Preliminary interpretation of this examination was reported by [employer] at 2:29 a.m. on 07/17/2017. There is concurrence of this report with the preliminary interpretation.
== END 2017-07-17 07:10 | disposition home or self-care (01) ==
LOC: H.ER 23:54
DX: K52.9 Noninfective gastroenteritis and colitis, unspecified (principal); F41.9 Anxiety disorder, unspecified; G89.29 Other chronic pain; Z88.0 Allergy status to penicillin; Z72.89 Other problems related to lifestyle
CPT/HCPCS: 76705; 80053; 81003; 83690; 85025; 96374; 96375; 99282; J1885; J2405; J7040